=== PATIENT | female | born 1995 | race African-American/Black ===

== ENCOUNTER 2016-07-03 20:02 | Emergency (ER) | payer OTHER ==
[2016-07-03 20:06] VITALS: BP 96/42; PULSE 104; TEMP 100.2; BMI 68.0
[2016-07-03] MEDS ORDERED: PSEUDOEPHEDRINE HCL 60 MG TABLET PO STA (20:48)
[2016-07-03] MEDS ORDERED: diphenhydrAMINE HCL 50 MG CAPSULE PO ONE (20:50)
[2016-07-03] MEDS ORDERED: ACETAMINOPHEN 325 MG TABLET (FP) PO ONE (20:55)
[2016-07-03] MEDS ORDERED: diphenhydrAMINE HCL 25 MG CAPSULE (FP) PO ONE (20:56)
[2016-07-03] MEDS ORDERED: ACETAMINOPHEN 325 MG TABLET (FP) ONE (20:56)
--- NOTE | 2016-07-03 20:58 | PDOC ---
History of Present Illness - General Chief Complaint: Cold Symptoms Stated Complaint: COLD Time Seen by Provider: 07/03/16 20:48 History Source: Patient Exam Limitations: No Limitations - History of Present Illness Initial Comments: 07/03/16 20:56 20 yr female with c/o nasal congestion, sore throat body aches started 3 days ago. 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 no medical history or allergies. non smoker. Severity: reports: mild Past History - Past Medical History Allergies/Adverse Reactions: Allergies Allergy/AdvReac Type Severity Reaction Status Date / Time shellfish derived Allergy Verified 07/03/16 20:04 Home Medications: Ambulatory Orders Fluticasone Prop 0.05% Nasal [Flonase -] 1 - 2 spray NS DAILY #1 spray.pump 12/11 - Family Disease History Comment:: 07/03/16 20:57 none relevant - Psycho/Social/Smoking Cessation Hx Suicidal Ideation: No Smoking History: Never smoked Respiratory Specific PMHX - Complaint Specific PMHX Angina: No Bronchitis: No Pneumonia: No Pulmonary Embolus: No TB (Tuberculosis): No Review of Systems - Review of Systems Able to Perform ROS?: Yes Is the patient limited Upper Sorbian proficient: No Constitutional: Yes: Symptoms Reported HEENTM: Yes: Symptoms Reported Respiratory: Yes: Symptoms reported *Physical Exam - Vital Signs Last Vital Signs Temp Pulse Resp BP Pulse Ox 100.2 F H 104 H 20 96/42 99 07/03/16 20:05 07/03/16 20:05 07/03/16 20:05 07/03/16 20:05 07/03/16 20:05 - Physical Exam General Appearance: Yes: Nourished, Appropriately Dressed HEENT: positive: EOMI, THOMAS, Normal Voice, TMs Normal, Pharyngeal Erythema, Nasal Congestion Neck: positive: Supple. negative: Tender, Lymphadenopathy (R), Lymphadenopathy (L) Respiratory/Chest: positive: Lungs Clear, Normal Breath Sounds. negative: Chest Tender Cardiovascular: positive: Regular Rhythm, Regular Rate Gastrointestinal/Abdominal: positive: Normal Bowel Sounds, Soft Musculoskeletal: positive: Normal Inspection Extremity: positive: Normal Capillary Refill, Normal Inspection, Normal Range of Motion Integumentary: positive: Normal Color, Dry, Warm Neurologic: positive: Fully Oriented, Alert, Normal Mood/Affect, Normal Response , Motor Strength 5/5 Medical Decision Making - Medical Decision Making 07/03/16 20:58 cc:fever, nasal congestion, sore throat will check for flu and strep non toxic appearing female no acute distress. 07/03/16 21:21 neg for flu negative for strep *DC/Admit/Observation/Transfer Diagnosis at time of Disposition: Viral upper respiratory illness - Discharge Dispostion Disposition: HOME Condition at time of disposition: Good - Prescriptions Prescriptions: Fluticasone Prop 0.05% Nasal [Flonase -] 1 - 2 spray NS DAILY #1 spray.pump - Patient Instructions Printed Discharge Instructions: DI for Viral Upper Respiratory Infection -- Adult Additional Instructions: drink pleanty of fluids use nasal irrigation to both nares to get mucous out or saline spray take motrin 600-800mg every 8hrs for pain or fever use the flonase nasal srpay as directed honey 1 tablespoon at bedtime for cough take over the counter Claritin D or Zyrtec for congestion and allergy symptoms
== END 2016-07-03 21:30 | disposition home or self-care (01) ==
LOC: JERFT 20:02
DX: J06.9 Acute upper respiratory infection, unspecified (principal); B97.89 Other viral agents as the cause of diseases classified elsewhere
CPT/HCPCS: 87070; 87430; 87804; 99281-25